=== PATIENT | female | born 1975 | race Two or more races ===

== ENCOUNTER 2025-03-05 16:06 | Emergency (ER) | payer BC ==
[~2025-03-05] VITALS: Ht 165.1 cm; Wt 81.6 kg
[2025-03-05 16:17] VITALS: BP 159/100; TEMP 98.1
[2025-03-05] MEDS ORDERED: ACETAMINOPHEN ES 500 MG TABLET ONE (16:33)
[2025-03-05] MEDS: ACETAMINOPHEN ES 500 MG TABLET PO ONE (16:36)
[2025-03-05] MEDS ORDERED: DOXY100C2 PO (17:04)
[2025-03-05 17:13] VITALS: O2SAT 98
== END 2025-03-05 17:14 | disposition home or self-care (01) ==
LOC: ER 16:14
DX: J18.9 Pneumonia, unspecified organism (principal); R05.9 Cough, unspecified; R07.89 Other chest pain; I10 Essential (primary) hypertension; E11.9 Type 2 diabetes mellitus without complications
CPT/HCPCS: 71045-TC